=== PATIENT | male | born 1985 | race Caucasian/White ===

== ENCOUNTER → 2021-06-17 | Outpatient (CLI) | payer SELFPAY ==
--- NOTE | 2021-06-17 07:49 | CT ---
EXAMINATION TYPE: CT wrist RT wo con DATE OF EXAM: 06/17/2021 COMPARISON: Outside right wrist x-ray 6 days ago. HISTORY: Right wrist fracture, known fracture after fall injury. CT DLP: 176 mGycm Automated exposure control for dose reduction was used. FINDINGS: There is redemonstration of an acute comminuted intra-articular minimally displaced fracture of the u lnar styloid. There is an 8 mm fracture fragment distally. There is a tiny 1 mm intra-articular fract ure fragment near the radial dorsal aspect sagittal image 23 and coronal image 12. Acute comminuted displaced fracture through the distal radial meta-epiphysis is redemonstrated. There is radial displacement roughly 1.4 cm and dorsal displacement of roughly 1.6 cm on sagittal images o f the larger fracture fragment. Intra-articular involvement of fracture with bony fragmentation is mo st prominent along the ulnar aspect of the distal radius. There is additional 2.3 cm fracture fragmen t involving the metadiaphysis along the ulnar aspect redemonstrated. There is single 1 to 2 mm ossifi c fragment along the volar ulnar aspect of the wrist joint sagittal image 19 and coronal image 8. The carpal joint spaces are maintained. No additional fracture at this level is seen. Base of the met acarpals is unremarkable. Mild to moderate diffuse soft tissue swelling and subcutaneous edema remains present. IMPRESSION: Redemonstration of acute displaced comminuted intra-articular fractures of the distal rad ius and ulna as detailed above.
== END ==
LOC: RADCTMAIN 07:08
PROVIDERS: ATTEND Orthopaedic Surgery Hand Surgery
DX: S52.611A Displaced fracture of right ulna styloid process, initial encounter for closed fracture (principal); S52.571A Other intraarticular fracture of lower end of right radius, initial encounter for closed fracture; W19.XXXA Unspecified fall, initial encounter

== ENCOUNTER 2021-06-20 12:06 | Day surgery (SDC) | payer SELFPAY ==
[2021-06-16 11:02] VITALS: BMI 33.2
[2021-06-20] MEDS ORDERED: LACTATED RINGERS 1,000 ML IV ONE ×2 (13:22→17:10)
[2021-06-20] MEDS ORDERED: ONDANSETRON 4 MG/2 ML VIAL ONE (13:26)
[2021-06-20] MEDS ORDERED: DEXAMETHASONE SOD PHOSPHATE 4 MG/ML 1 ML VIAL IVP ONE (13:30)
[2021-06-20] MEDS ORDERED: ONDANSETRON 4 MG/2 ML VIAL IVP ONE (13:30)
[2021-06-20] MEDS ORDERED: fentaNYL (PF) 50 MCG/ML 2 ML AMP IVP ONE ×2 (13:56→14:00)
[2021-06-20] MEDS ORDERED: MIDAZOLAM 2 MG/2 ML VIAL IVP ONE (13:56)
--- NOTE | 2021-06-20 15:10 | P.ANPRN ---
Procedure Note - Anesthesia - Nerve Block Performed Right Axillary Single Time Out Performed: Yes (1356) Date of Procedure: 06/20/21 Procedure Start Time: 13:57 Procedure Stop Time: 14:10 Location of Patient: PreOp Indication: Acute Post-Operative Pain, Requested by Surgeon Specifically requested for management of pain by DrMariposa: Maryam Chacon Sedation Type: Sedate with meaningful contact maintained Preparation: Sterile Prep Position: Supine (arm over head) Catheter: None Needle Types: Pajunk Needle Gauge: 21 (4in) Ultrasound used to visualize needle placement: Yes Ultrasound used to observe medication spread: Yes Injectate: 0.5% Ropivacaine (see comment for volume) (7.5cc + 5cc saline each of 4 nerves. 30cc Ropi 0.5% total + 20cc Saline Total) Blood Aspirated: No Pain Paresthesia on Injection Noted: No Resistance on Injection: Normal Image Stored and Saved: Yes Events: Uneventful and Well Tolerated
[2021-06-20] MEDS ORDERED: LIDOCAINE 1% INJ 10MG/ML (20 ML MDV) ONE (15:25)
[2021-06-20] MEDS ORDERED: fentaNYL (PF) 50 MCG/ML 2 ML AMP ONE (15:25)
[2021-06-20] MEDS ORDERED: SODIUM CHLORIDE 0.9% (PF) 10 ML VIAL ONE (15:25)
[2021-06-20] MEDS ORDERED: ROPIVACAINE 5 MG/ML 30 ML VIAL ONE (15:25)
[2021-06-20] MEDS ORDERED: HYDROmorphone (PF) 1 MG/ML ONE (15:25)
[2021-06-20] MEDS ORDERED: KETAMINE 10 MG/ML 20 ML VIAL ONE (15:25)
[2021-06-20] MEDS ORDERED: PROPOFOL 10 MG/ML 20 ML VIAL IV ONE (15:25)
[2021-06-20] MEDS ORDERED: MIDAZOLAM 2 MG/2 ML VIAL ONE (15:25)
[2021-06-20 18:25] VITALS: TEMP 97
[2021-06-20] MEDS ORDERED: KETOROLAC 15 MG/ML 1 ML VIAL IVP ONE (18:30)
[2021-06-20] MEDS ORDERED: KETOROLAC 30 MG/ML 1 ML VIAL ONE (18:36)
--- NOTE | 2021-06-20 18:40 | P.OP ---
Date of Procedure: 06/20/21 Preoperative Diagnosis: right 4 part intraarticular distal radius fracture, distal ulna fracture Postoperative Diagnosis: same Procedure(s) Performed: right distal radius open reduction internal fixation, 4 part intraarticular fracture Implants: skeletal dynamics large bridge plate, 6.2 k wires x 2 Anesthesia: MAC, regional Surgeon: Maryam Chacon Mathematical Technician #1: Jessica Medeiros Estimated Blood Loss (ml): 10 Condition: stable Disposition: PACU Indications for Procedure: Right distal radius and ulna fracture sustained last week when he fell from a ladder while installing gutters. fracture is displaced and unstable. Numbness and tingling has resolved. Treatment options were discussed and Patient elects to proceed with surgical intervention. Description of Procedure: Patient, operative extremity, and procedure were identified in the preoperative holding area. After informed consent was obtained the patient received regional block by anesthesia team. He was then brought back to the operating room where the right upper extremity is prepped and draped in normal sterile fashion with a tourniquet along the patient's brachium. Formal timeout was performed and the tourniquet was inflated. Longitudinal incision was made along the volar surface of the patient's wrist along the FCR tendon. Dissection was carried down to the tendon with care taken to protect the cutaneous nerves. The tendon was then mobilized ulnarly and the sub-sheath was incised longitudinally. Tendons were then protected and mobilized to reveal the pronator quadratus. This was incised and elevated off of the fracture site. Fracture was further characterized and the distal pieces were found to be too small for reliable fixation, even with the volar hook extension which was the original plan. The fracture was also much too shortened to allow for reduction and fixation through the small pieces. Attention was then turned to the dorsal surface. A dorsal spanning plate was utilized. Longitudinal incision over the third metacarpal was made and dissection was taken down to the metacarpal periosteum. Care was taken to protect the tendons and cutaneous nerves. ECRB tendon was identified in the plate was slid proximally under the tendon in the second dorsal compartment. The EPL was tested and found to move freely. A single nonlocking screw was loosely placed in the oblong hole over the metacarpal. Longitudinal incision was then made over the proximal aspect of the plate. Dissection was carried down to the fascia and around the outcropper muscles. These were carefully removed aside to access the radius. A single nonlocking screw was placed loosely in the oblong hole over the radius. The distal screw was tightened once aligned with the metacarpal bone and longitudinal traction was applied. Once the appropriate reduction of length of the distal radius was confirmed on fluoroscopy, the proximal screw was then tightened. Patient was able to passively make a composite fist easily. Attention was then turned back to the volar incision. Reduction of the pieces was fine tuned and fixated with K wires. Once this was deemed adequate the remaining screws for the dorsal spanning plate were inserted. Reduction and hardware placement was confirmed on fluoroscopy. K wires were then cut under the skin. Tourniquet was let down and hemostasis was achieved and the wound was closed with 4-0 Monocryl and skin glue dorsally and 3-0 Vicryl and 4-0 nylon on the volar surface. Wound was dressed with Adaptic 4 x 4's cast padding and a volar wrist splint was applied. Patient was aroused by the anesthesia team and brought back to PACU in stable condition. We'll see him back in the office in 2 weeks. He will have this bridge plate for 3 months and come back for hardware removal.
[2021-06-20 19:51] VITALS: BP 135/90; PULSE 67; RESP 18
== END 2021-06-20 20:25 | disposition home or self-care (01) ==
LOC: OR 12:06
PROVIDERS: ATTEND Orthopaedic Surgery Hand Surgery
DX: S52.571A Other intraarticular fracture of lower end of right radius, initial encounter for closed fracture (principal); S52.601A Unspecified fracture of lower end of right ulna, initial encounter for closed fracture; W17.89XA Other fall from one level to another, initial encounter; G47.33 Obstructive sleep apnea (adult) (pediatric); Z79.1 Long term (current) use of non-steroidal anti-inflammatories (NSAID); Z79.891 Long term (current) use of opiate analgesic; Z79.899 Other long term (current) drug therapy
CPT/HCPCS: 25609; 64417; 76942; C1713; J2250; J1100; J0690; J2405; J2001; J3010; J1170; J2795; J1885; J2704; 64415